=== PATIENT | male | born 1970 | race Caucasian/White ===

== ENCOUNTER 2018-10-10 14:53 | Emergency (ER) | payer OTHER ==
--- NOTE | 2018-10-10 15:02 | EDPHY ---
HPI/HX/ROS/PE/MDM Narrative: CHIEF COMPLAINT: Chest pain, left arm numbness HPI: This patient is a 48 year old male with history or type 2 diabetes and remote history of pericarditis. He presents today with left-sided chest pain which began two hours prior to arrival, around 13:00pm. He initially developed paresthesias in his left hand while at home building a sauna for his which involved lifting. He then broke out in a cold sweat, which was followed by dull , left-sided chest discomfort. This is not sharp, but it more like a pressure sensation. The discomfort radiates towards his left shoulder and persists now. He took one full strength ASA (325mg) and drove here to the emergency department. He has history of pericarditis 15 years ago, but his symptoms today are not similar to this. At that time, his primary symptom was severe pressure "like an elephant on my chest". He had a negative stress test following this event. He does endorse a mild increase in pain when moving his left shoulder. No nausea, vomiting, fever, difficulty breathing, or other associated symptoms. REVIEW OF SYSTEMS: A comprehensive 10 system review of systems is otherwise negative aside from elements mentioned in the history of present illness and medical decision making. PMH: Pericarditis fifteen years ago, diabetes mellitus type 2 (well -controlled) . SOCIAL HISTORY: Employed. . Lives in [place]. PHYSICAL EXAM: General:Patient is alert, in no acute distress. Afebrile. Hypertensive at triage 168/101 . ENT:Eyes are normal to inspection. ENT inspection normal. Neck: Normal inspection. Full range of motion. Respiratory:No respiratory distress. Breath sounds normal bilaterally. Cardiovascular: Regular rate and rhythm. Strong peripheral pulses. Normal cap refill. Abdomen:The abdomen is nontender to palpation. There are no peritoneal signs. There are normal bowel sounds. Back: Normal to inspection. No tenderness to palpation. Skin: Normal color. No rash. Warm and dry. Extremities: Normal appearance. Full range of motion. Neuro: Oriented x3. Normal motor function. Normal sensory function. ED Course: 48 y/o male presents with left-sided chest pressure following an episode of left arm tingling and diaphoresis. Heart sounds are somewhat distant on exam. Plan for EKG, chest x-ray, labs including CBC, chemistries, troponin. Patient does endorse mild increase in symptoms when lifting his left shoulder. EKG was ordered and interpreted by myself. Please see [employer] system for official reading. Sinus rhythm, no evidence of ischemia. Troponin negative. Labs otherwise largely unremarkable. Discussed negative workup so far. Plan for US to r/o pericardial effusion. 15:45 Performed bedside cardiac US negative for pericardial effusion. Procedure: Cardiac ultrasound Limited bedside ultrasound was performed and interpreted by myself for the indication of: Distant heart sounds, history of pericarditis, rule-out pericardial effusion Limited transthoracic echocardiogram: The pericardium was visualized and found to be negative for pericardial fluid. The study was negative for pericardial effusion. The procedure was performed by myself, Dr. Walsh Reviewed chest x-ray. This is negative for acute processes. Discussed negative workup so far. Patient's HEART score is 3. Discussed that the patient is at intermediate risk given suspicious history and history of diabetes mellitus. I offered admission for further workup vs. outpatient follow up with cardiology. [place] he is amenable to admission. 16:00 Patient's now at bedside. They have discussed options and would like to go home. Plan to discharge home in good condition. Follow up and strict return precautions discussed. The patient and his family are comfortable with this plan. I have ordered an outpatient cardiology evaluation. They understand risks of possible ACS, sudden , need for procedure. - Data Points Imaging Results: Imaging Impressions Chest X-Ray 10/10/18 15:03 Impression: Normal chest. Imaging: I viewed and interpreted images myself Laboratory Results: Laboratory Results 10/10/18 15:08 10/10/18 15:08 10/10/18 10/10/18 10/10/18 15:08 15:08 15:07 WBC 7.59 10^3/uL 10^3/uL (3.80-9.50) RBC 5.43 10^6/uL 10^6/uL (4.40-6.38) Hgb 17.4 g/dL g/dL (13.7-17.5) Hct 49.5 % % (40.0-51.0) MCV 91.2 fL fL (81.5-99.8) MCH 32.0 pg pg (27.9-34.1) MCHC 35.2 g/dL g/dL (32.4-36.7) RDW 12.4 % % (11.5-15.2) Plt Count 264 10^3/uL 10^3/uL (150-400) MPV 9.8 fL fL (8.7-11.7) Neut % (Auto) 60.6 % % (39.3-74.2) Lymph % (Auto) 31.2 % % (15.0-45.0) [place] % (Auto) 6.3 % % (4.5-13.0) Eos % (Auto) 0.7 % % (0.6-7.6) Baso % (Auto) 0.8 % % (0.3-1.7) Nucleat RBC Rel Count 0.0 % % (0.0-0.2) Absolute Neuts (auto) 4.60 10^3/uL 10^3/uL (1.70-6.50) Absolute Lymphs (auto) 2.37 10^3/uL 10^3/uL (1.00-3.00) Absolute Monos (auto) 0.48 10^3/uL 10^3/uL (0.30-0.80) Absolute Eos (auto) 0.05 10^3/uL 10^3/uL (0.03-0.40) Absolute Basos (auto) 0.06 10^3/uL 10^3/uL (0.02-0.10) Absolute Nucleated RBC 0.00 10^3/uL 10^3/uL (0-0.01) Immature Gran % 0.4 % % (0.0-1.1) Immature Gran # 0.03 10^3/uL 10^3/uL (0.00-0.10) Sodium 139 mEq/L mEq/L (135-145) Potassium 4.2 mEq/L mEq/L (3.5-5.2) Chloride 106 mEq/L mEq/L (97-110) Carbon Dioxide 23 mEq/l mEq/l (22-31) Anion Gap 10 mEq/L mEq/L (6-14) BUN 12 mg/dL mg/dL (7-23) Creatinine 0.9 mg/dL mg/dL (0.7-1.3) Estimated GFR > 60 Glucose 134 mg/dL H mg/dL (70-100) Calcium 10.2 mg/dL mg/dL (8.5-10.4) POC Troponin I 0.00 ng/mL ng/mL (0.00-0.08) Point of Care Test Results: Chemistry 10/10/18 15:07 POC Troponin I 0.00 ng/mL ng/mL (0.00-0.08) General Time Seen by Provider: 10/10/18 14:58 Initial Vital Signs: Initial Vital Signs Temperature (C) 36.8 C 10/10/18 14:54 Heart Rate 88 10/10/18 14:54 Respiratory Rate 16 10/10/18 14:54 Blood Pressure 163/101 H 10/10/18 14:54 O2 Sat (%) 94 10/10/18 14:54 O2 Delivery Mode Room Air O2 (L/minute) 2 Allergies/Adverse Reactions: No Known Allergies Allergy (Unverified 10/10/18 14:54) Home Medications: Medication Instructions Recorded NK [No Known Home Meds] 10/10/18 Departure - Departure Disposition: Home, Routine, Self-Care Clinical Impression: Chest pain Condition: Good Instructions: Chest Pain (ED) Additional Instructions: Follow-up with your primary doctor within 72 hours. Return to the Emergency Department for fever, chest pain, shortness of breath, increasing pain or other worsening of condition. Follow up with a consulting intern for further testing, as soon as possible, within one week. As we discussed, it is impossible to fully rule out heart disease as the cause of your chest pain in the emergency department. We would be happy to reevaluate you and observe you in the hospital at any time. Referrals: Jeffrey Robles MD [Medical Doctor] - As per Instructions Report Scribed for: Patrice Walsh Report Scribed by: Monique Fox Date of Report: 10/10/18 Time of Report: 15:08 Physician Review and Approval Statement: Portions of this note were transcribed by an ED scribe. I personally performed the history, physical exam, and medical decision making; and confirm the accuracy of the information in the transcribed note.
[2018-10-10 15:23] LABS: PLATELET COUNT 264 10^3/uL (150-400)
[2018-10-10 16:16] VITALS: BP 121/87
--- NOTE | 2018-10-10 21:14 | CPEKG ---
Test Reason : OPEN Blood Pressure : / mmHG Vent. Rate : 084 BPM Atrial Rate : 084 BPM P-R Int : 177 ms QRS Dur : 085 ms QT Int : 354 ms P-R-T Axes : 053 060 035 degrees QTc Int : [address] elev, probable normal early repol pattern Confirmed by Rudy Campos ([id number]) on 10/10/2018 9:13:34 PM Referred By: Patrice Walsh Confirmed By:Rudy Campos
== END 2018-10-10 16:16 | disposition home or self-care (01) ==
DX: R07.89 Other chest pain (principal); E11.9 Type 2 diabetes mellitus without complications
CPT/HCPCS: 84484-ER